=== PATIENT | female | born 1975 | race Native Hawaiian/Other Pacific Islander ===

== ENCOUNTER 2016-10-24 09:31 | Emergency (ER) | payer OTHER ==
[~2016-10-24] VITALS: Ht 157.5 cm; Wt 93.0 kg
[2016-10-24 11:38] LABS: SODIUM 134 mmol/L (136-145)
[2016-10-24 11:48] LABS: PARTIAL THROMBOPLASTIN TIME 26.1 SECONDS (24.5-33.6)
[2016-10-24 11:52] LABS: PLATELET COUNT 245 K/uL (152-353)
== END 2016-10-24 13:36 | disposition home or self-care (01) ==
LOC: ED 09:31
PROVIDERS: Emergency Medicine
DX: K29.70 Gastritis, unspecified, without bleeding (principal)
CPT/HCPCS: 36415; 80053; 82550; 83690; 83880; 84484; 85027; 85610; 85730; 86318; 93005; 96374; 96375; 99284; J2270; J2405; J3490